=== PATIENT | male | born 1975 | race Two or more races ===

== ENCOUNTER 2017-06-09 10:30 | Day surgery (SDC) | payer BC ==
[2017-06-09] MEDS ORDERED: LIDOCAINE 2%HCL (LOCAL ANESTH.) INJ 20ML MDV ONE (10:47)
[2017-06-09] MEDS ORDERED: IODIXANOL 320MG/ML 100ML BTL IV ONE (10:47)
[2017-06-09] MEDS ORDERED: ANGIOMAX 250 MG VIAL IV ONE (11:59)
[2017-06-09] MEDS ORDERED: fentaNYL CITRATE 100 MCG/2 ML VL ONE (12:00)
[2017-06-09] MEDS ORDERED: VERAPAMIL 2.5MG/ML INJ 2ML VIAL IV ONE (12:00)
[2017-06-09] MEDS ORDERED: MIDAZOLAM HCL 1MG/1ML-2 ML VIAL ONE (12:00)
[2017-06-09] MEDS ORDERED: SODIUM CHL 0.9% 100 ML ONE (12:00)
[2017-06-09] MEDS ORDERED: NITROGLYCERIN 5MG/ML 10ML VIAL IV ONE (12:00)
[2017-06-09] MEDS ORDERED: HEPARIN SODIUM (PORCINE) 5000 UNITS/ML 1ML VIAL ONE (12:23)
== END 2017-06-09 15:30 | disposition home health service (06) ==
LOC: CATH 10:30
PROVIDERS: ATTEND Internal Medicine
DX: I20.0 Unstable angina (principal); F17.210 Nicotine dependence, cigarettes, uncomplicated
CPT/HCPCS: 93005; 93458; C1769; C1894; J1644; J2250; J3010; J3490; J7030; Q9967; 99152; 99153